=== PATIENT | female | born 1945 | race Caucasian/White ===

== ENCOUNTER 2016-08-29 05:16 | Day surgery (SDC) | payer MEDICARE ==
[~2016-08-29 05:16] MED LIST: BACTRIM DS TAB1 EAC2 PO; COLACE100 M1 PO; FOLIC ACID1 M1 PO; FOSAMAX70 M1 PO; LEVAQUIN500 M1 PO; MIRALAX17 G2 PO; PROMETH-CODEIN 65 ML; SYNTHROID100 MC1 PO; SYNTHROID25 MC1 PO; VITAMIN D2000 UNI1 PO; [UNRECOGNIZED DRUG - OTHER] PO
--- NOTE | 2016-08-29 20:15 | NUR ---
KARUNA MANRIQUE NOTE-VISITED WITH PATIENT SHE LAY IN BED-STATES SHE JUST GOT A 2ND PAIN PILL AND IT IS HELPING A LOT. WE REVIEWED HER SURGERY, THE PREVENA VAC, ABD BINDER AND INCENTIVE SPIROMETER. I ALSO LET HER KNOW THAT THEY WILL WALK HER TONIGHT BEFORE SHE GOES TO SLEEP. SHE WANTS TO DO THAT. PATIENT HAD NO OTHER QUESTIONS OR CONCERNS AND REALLY LIKES THIS VIRTUAL NURSING.
[2016-08-31] MEDS ORDERED: NORCO 5-325 TA1 EACH PO (09:04)
[2016-08-31] MEDS ORDERED: COLACE100 M1 PO (09:05)
[2016-08-31] MEDS ORDERED: STOP HOME MEDICATION (09:07)
--- NOTE | 2016-08-31 11:24 | NUR ---
VIRTUAL VIRTUAL CARE NOTE: PT RESTING ON BED, STATES DOING OK READY FOR DISCHARGE INSTRUCTIONS, NO FAMILY OR VISITORS IN THE ROOM AT THIS TIME. INFORMATION GIVEN TO PT AND REINFORCED. PT FEELS COMFORTABLE TO REMOVE PREVENA WOUND VAC DRESSING AT HOME. ALL QUESTIONS WERE ANSWERED, PT DENIES FURTHER QUESTIONS OR CONCERNS.
== END 2016-08-31 12:45 ==
LOC: SRG 05:16 → SHSA 05:21 → ORW 07:56 → PACU 10:08 → 5WD 12:08
PROC: 0WUF4JZ Supplement Abdominal Wall with Synthetic Substitute, Percutaneous Endoscopic Approach (ICD-10-PCS; principal; 2016-08-29)
DX: K43.2 Incisional hernia without obstruction or gangrene (principal); E03.9 Hypothyroidism, unspecified; J44.9 Chronic obstructive pulmonary disease, unspecified; Z79.83 Long term (current) use of bisphosphonates; Z79.899 Other long term (current) drug therapy; Z88.0 Allergy status to penicillin; Z88.1 Allergy status to other antibiotic agents; Z87.891 Personal history of nicotine dependence; Z85.3 Personal history of malignant neoplasm of breast; Z90.79 Acquired absence of other genital organ(s); Z90.721 Acquired absence of ovaries, unilateral; Z98.890 Other specified postprocedural states
CPT/HCPCS: C1781; J2405; J7030